=== PATIENT | female | born 1940 | race Asian ===

== ENCOUNTER → 2019-09-20 15:23 | Outpatient (CLI) | payer MEDICARE, SELFPAY ==
--- NOTE | 2019-09-20 15:25 | DI.RAD.S_ITS ---
PROCEDURE: XR KNEE RT 3V INDICATIONS: r knee pain TECHNIQUE: 3 views of the knee were acquired. COMPARISON: None. FINDINGS: Bones: No fractures or dislocations. No suspicious bony lesions. Soft tissues: No joint effusion. No suspicious soft tissue calcifications. IMPRESSION: Normal for age, source of current knee pain symptoms is not seen. Dictated by: Peng Hanely M.D. on 09/20/2019 at 16:56 Approved by: Peng Hanley M.D. on 09/20/2019 at 16:56
== END ==
PROVIDERS: Family Provider Family Medicine; PCP Family Medicine; Referring Provider Internal Medicine; Visit Provider Internal Medicine
DX: M25.561 Pain in right knee (principal)
CPT/HCPCS: 73562

== ENCOUNTER 2019-09-26 07:19 | Emergency (ER) | payer MEDICARE, SELFPAY ==
[2019-09-26 07:29] VITALS: BP 200/80; PULSE 78; RESP 14; TEMP 36.4; O2SAT 99
--- NOTE | 2019-09-26 07:29 | DI.RAD.S_ITS ---
PROCEDURE: XR KNEE RT 3V INDICATIONS: knee pain TECHNIQUE: 3 views of the knee were acquired. COMPARISON: [facility], CR, XR KNEE RT 3V, 09/20/2019, 15:21. FINDINGS: Bones: No fractures or dislocations. No suspicious bony lesions. Multilevel degenerative endplate sclerosis and spurring. Diffuse facet arthropathy. Soft tissues: No joint effusion. No suspicious soft tissue calcifications. IMPRESSION: Mild degenerative changes as before. No evidence of occult fracture. If the patient's pain or other symptoms persist, consider further evaluation with MRI Dictated by: Franklyn Langley M.D. on 09/26/2019 at 9:17 Approved by: Franklyn Langley M.D. on 09/26/2019 at 9:19
--- NOTE | 2019-09-26 07:54 | ED_ITS ---
HPI - Extremity Injury (Lower) General Chief Complaint: Extremity Injury, Lower Stated Complaint: pain in right foot Time Seen by Provider: 09/26/19 07:41 Source: patient and family Mode of arrival: Ambulatory Limitations: language barrier History of Present Illness HPI Narrative: 79-year-old female. Using. Does speak broken [place]ic but states that she understands what I am staying here for evaluation of right knee pain. She has seen her primary provider's office for this several weeks ago. Was placed on meloxicam. She states she has been taking it. States that is not helping her symptoms and she is now having a hard time sleeping at night. No specific trauma. Only describes the pain on the inside of her right knee. It is not her ankle despite what her triage complaint was. Related Data Previous Rx's Medication Instructions Recorded meloxicam 7.5 mg tablet 7.5 mg PO DAILY #30 tab 09/20/19 lidocaine 1 patch TOP DAILY #1 each 09/26/19 tramadol [Ultram] 50 mg PO BEDTIME PRN #7 tab 09/26/19 Allergies Allergy/AdvReac Type Severity Reaction Status Date / Time No Known Allergies Allergy Uncoded 09/20/19 14:58 Review of Systems Constitutional Constitutional: Denies headache(s) ENT Ears, Nose, Mouth, and Throat: Denies headache(s) Musculoskeletal Musculoskeletal: Denies tingling Comments: Right knee pain Integumentary/Breasts Skin/Breast: Denies lesions and Denies rash Neurologic Neurologic: Denies headache(s), Denies tingling and Denies paresthesias Hematologic/Lymphatic Hematologic/Lymphatic: Denies easy bleeding and Denies easy bruising Patient History Medical History Colostomy present (Chronic) Social History Smoking Status: Never smoker Smoking Status: Never smoker Substance Use Type: does not use Exam Initial Vital Signs Initial Vital Signs: Vital Signs Temperature 97.5 F L 09/26/19 07:29 Pulse Rate 78 09/26/19 07:29 Respiratory Rate 14 09/26/19 07:29 Blood Pressure 200/80 H 09/26/19 07:29 Pulse Oximetry 99 09/26/19 07:29 Const General: cooperative, comfortable and well developed Skin Lesions: no lesions Rashes: no rashes Neuro Cognition: normal cognition Sensory Exam: no sensory deficits noted Extrem Other: Right ankle unremarkable, patient with tenderness to palpation only on the medial aspect of her right knee along the joint line. No other tenderness another spot of the right knee. Right thigh and right hip unremarkable Psych Appearance: grossly normal and well kempt Course Orders Ordered: ED Orders 09/26/19 07:29 XR knee RT 3V Stat Vital Signs Vital signs: Vital Signs - 8 hr 09/26/19 07:29 Temperature 97.5 F L Pulse Rate 78 Respiratory Rate 14 Blood Pressure 200/80 H Pulse Oximetry 99 MDM - Extremity Injury (Lower) Imaging Data Extremity x-ray #1: Attestation: I personally reviewed and interpreted this imaging study as follows: My Impression: No fractures or dislocations of the right knee MDM Narrative Medical decision making narrative: X-rays unremarkable. I do suspect that this is a soft tissue/musculoskeletal/meniscus injury. She is already on meloxicam. She will continue to take the meloxicam. Will send home with lidocaine patches and also Ultram to help her at night. She does have an appointment with her primary doctor coming up in approximately 2 weeks to discuss further workup. She was given return precautions and follow-up instructions. She did expressed understanding and agreement. Discharge Plan Departure Patient Disposition: Home Clinical Impression: Pain in right knee Qualifiers: Chronicity: unspecified Qualified Code(s): M25.561 - Pain in right knee Instructions: How To Perform RICE (Rest, Ice, Compress, Elevate), DI for Knee Pain Activity Restrictions/Additional Instructions: Continue with the meloxicam. This is the medicine that you were given at your last doctor's visit. Take the new prescriptions as directed. Keep your follow- up appointment later this month. Prescriptions: New lidocaine 5 % adhesive patch,medicated 1 patch TOP DAILY Qty: 1 RF: 0 tramadol [Ultram] 50 mg tablet 50 mg PO BEDTIME PRN (Reason: pain) Qty: 7 RF: 0 No Action meloxicam 7.5 mg tablet 7.5 mg PO DAILY Qty: 30 RF: 0 Referrals: Syed Marks MD [Primary Care Provider] -
== END 2019-09-26 08:36 | disposition home or self-care (01) ==
PROVIDERS: Emergency Provider Emergency Medicine; Family Provider Family Medicine; PCP Family Medicine
DX: M25.561 Pain in right knee (principal)
CPT/HCPCS: 73562; 99283

== ENCOUNTER → 2019-10-21 17:24 | Outpatient (CLI) | payer MEDICARE, SELFPAY ==
--- NOTE | 2019-10-21 17:26 | DI.MRI.S_ITS ---
PROCEDURE: MR KNEE RT WO CON INDICATIONS: Pain TECHNIQUE: Noncontrast sagittal PD fast spin echo and T2 fast spin echo with fat saturation, sagittal 3-D FLASH with fat saturation; coronal T1 spin echo and PD fast spin echo with fat saturation, and axial PD fast spin echo with fat saturation through the knee. COMPARISON: None. FINDINGS: Image quality: Excellent. Menisci: There is an complex oblique tear involving posterior horn of medial meniscus extending to both superior and inferior articulating surfaces. Peripheral displacement of medial meniscus is seen bone medial collateral ligament. There is no focal lateral meniscal tear. The meniscal root ligaments appear intact. Cruciate ligaments: The anterior and posterior cruciate ligaments appear intact. Medial structures: Moderate grade medial collateral ligament sprain is seen. The posterior oblique ligament, semimembranosus tendon insertions, oblique popliteal ligament, and meniscocapsular junction appear intact. Visualized portions of the pes anserinus tendons appear normal. No abnormal bursal fluid. Lateral structures: The lateral collateral ligament, long and short heads of the biceps femoris tendon appear intact. The popliteus tendon appears normal; the popliteofibular ligament appears intact. The posterosuperior and anteroinferior popliteomeniscal fascicles appear intact. The arcuate and fabellofibular ligaments appear intact, on either side of the lateral inferior geniculate artery. Iliotibial band appears normal. Anterior structures: The quadriceps and patellar tendons appear intact. Patellar alignment is normal. No femoral trochlear dysplasia or ventral trochlear prominence. No edema in the infrapatellar fat pad. Bones and cartilage: No bone marrow contusions or fractures. Medial femoral tibial compartment osteoarthritis and chondromalacia is seen. Osteophytic changes and low to moderate grade chondromalacia involving patellofemoral compartment is seen with tiny 3-4 mm osteochondral lesions in apex and medial portion of posterior patella. Joint space: There is small amount of joint fluid. No Luna's cyst. Normal appearing synovial plicae are incidentally noted. IMPRESSION: 1. Complex oblique tear involving posterior horn of medial meniscus extending to superior and inferior articulating surfaces. No focal lateral meniscal tear. 2. Cruciate ligaments are intact. Moderate grade MCL sprain. 3. 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 Small joint effusion. Dictated by: Eulalio Henley M.D. on 10/24/2019 at 8:56 Approved by: Eulalio Henley M.D. on 10/24/2019 at 9:04
== END ==
PROVIDERS: Family Provider Family Medicine; PCP Family Medicine; Referring Provider Family Medicine; Visit Provider Family Medicine
DX: M25.561 Pain in right knee (principal); S83.231A Complex tear of medial meniscus, current injury, right knee, initial encounter; S83.411A Sprain of medial collateral ligament of right knee, initial encounter; M22.41 Chondromalacia patellae, right knee; M17.11 Unilateral primary osteoarthritis, right knee; M25.461 Effusion, right knee
CPT/HCPCS: 73721

== ENCOUNTER → 2020-09-10 16:06 | Outpatient (CLI) | payer MEDICARE, SELFPAY ==
[2020-09-10 18:16] LABS: Add Manual Diff / Slide Review NO; Basophils Absolute Auto 0 /uL (0-100); Basophils Percent Auto 0.5 % (0-2); Eosinophils Absolute Auto 300 /uL (0-450); Eosinophils Percent Auto 3.4 % (2-4); Hematocrit 41.2 % (36-46); Hemoglobin 13.7 g/dL (12.0-16.0); Lymphocytes Absolute Auto 1900 /uL (1100-4500); Lymphocytes Percent Auto 24.4 % (25-40); Mean Corpuscular HGB Conc 33.3 % (30-36); Mean Corpuscular Hemoglobin 28.7 PG (26-34); Mean Corpuscular Volume 86.2 fL (80-100); Monocytes Absolute Auto 600 /uL (0-900); Monocytes Percent Auto 7.4 % (3-14); Neutrophils Absolute Auto 4900 /uL (1500-7000); Neutrophils Percent Auto 64.3 % (50-75); Platelet Count 145 X10^3/uL (150-400); Red Blood Cell Count 4.78 X10^6/uL (4.0-5.2); Red Cell Distribution Width 13.5 % (11.6-14.8); White Blood Cell Count 7.6 X10^3/uL (4.5-11.0)
[2020-09-10 18:41] LABS: Alanine Aminotransferase 18 IU/L (<35); Albumin 4.5 g/dL (3.5-5.0); Albumin Globulin Ratio 1.5 (1.0-2.8); Alkaline Phosphatase 165 U/L (38-126); Aspartate Aminotransferase 23 IU/L (14-36); BUN Creatinine Ratio 42.6 (6-22); Bilirubin Total 0.5 mg/dL (0.2-1.3); Blood Urea Nitrogen 23 mg/dL (7-17); Calcium 9.2 mg/dL (8.4-10.2); Carbon Dioxide 30 mmol/L (22-32); Chloride 102 mmol/L (98-107); Estimated Glomerular Filt Rate > 60.0 mL/min (>60); Glucose 108 mg/dL (80-110); HEMOLYSIS < 15 (0-50); Potassium 4.2 mmol/L (3.4-5.1); Sodium 137 mmol/L (137-145); Total Protein 7.5 g/dL (6.3-8.2)
[2020-09-10 19:12] LABS: Carcinoembryonic Antigen 1.7 ng/mL (0.1-3.0)
== END ==
PROVIDERS: Family Provider Family Medicine; PCP Family Medicine; Referring Provider Internal Medicine; Visit Provider Internal Medicine
DX: C18.9 Malignant neoplasm of colon, unspecified (principal)
CPT/HCPCS: 36415; 80053; 82378; 85025